=== PATIENT | female | born 1995 | race Caucasian/White ===

== ENCOUNTER → 2018-08-28 14:01 | Outpatient (CLI) | payer SELFPAY ==
[~2018-08-28 14:01] MED LIST: PREPLUS CA-FE1 EACH PO; TYLENOL W/CODEI1 TAB PO
[2018-08-28 15:25] LABS: APPEARANCE CLEAR (CLEAR); BILIRUBIN NEGATIVE (NEGATIVE); COLOR YELLOW (YELLOW); GLUCOSE 50 mg/dL (NEGATIVE); KETONE NEGATIVE (NEGATIVE); NITRITE NEGATIVE (NEGATIVE); PROTEIN NEGATIVE (NEGATIVE); SPECIFIC GRAVITY 1.025 (1.005-1.020); UROBILINOGEN NORMAL (NORMAL); WHITE CELLS - URINE NSEEN /hpf (0-5)
[2018-08-28 15:26] LABS: EPITHELIAL CELLS 0-5 /hpf (0-5); RED CELLS - URINE 0-5 /hpf (0-5)
== END | disposition home or self-care (01) ==
LOC: D.LDO 14:01
PROVIDERS: Obstetrics & Gynecology
DX: O36.8120 Decreased fetal movements, second trimester, not applicable or unspecified (principal); Z3A.21 21 weeks gestation of pregnancy

== ENCOUNTER → 2018-11-19 09:51 | Outpatient (CLI) | payer BC ==
[2018-11-19 11:17] LABS: APPEARANCE HAZY (CLEAR); BILIRUBIN NEGATIVE (NEGATIVE); COLOR YELLOW (YELLOW); GLUCOSE NEGATIVE (NEGATIVE); KETONE NEGATIVE (NEGATIVE); NITRITE NEGATIVE (NEGATIVE); PROTEIN NEGATIVE (NEGATIVE); UROBILINOGEN NORMAL (NORMAL)
[2018-11-19 11:20] LABS: RED CELLS - URINE RARE /hpf (0-5); UDS - AMPHET NEGATIVE QUAL (NEGATIVE); UDS - BARB NEGATIVE QUAL (NEGATIVE); UDS - BENZO NEGATIVE QUAL (NEGATIVE); UDS - COCAINE NEGATIVE QUAL (NEGATIVE); UDS - OPIATE NEGATIVE QUAL (NEGATIVE); UDS - PCP NEGATIVE QUAL (NEGATIVE); UDS - THC NEGATIVE QUAL (NEGATIVE)
[2018-11-19 11:21] LABS: BACTERIA MODERATE /hpf (NONE SEEN); MUCUS <1+ /lpf (NONE SEEN)
== END | disposition home or self-care (01) ==
LOC: D.LDO 09:51
PROVIDERS: ATTEND Obstetrics & Gynecology
DX: O26.899 Other specified pregnancy related conditions, unspecified trimester (principal); Z3A.00 Weeks of gestation of pregnancy not specified

== ENCOUNTER → 2018-12-02 20:33 | Outpatient (CLI) | payer BC ==
[~2018-12-02 20:33] MED LIST changes: +ACETAMINOPHEN500 M1 PO; +BENADRYL50 MG PO; +COLACE100 MG PO; +FIBER-TABS625 MG PO; +PROBIOTIC1 EAC1 PO; +TYLENOL PM1 TAB PO; +ZOFRAN ODT4 MG/UDTAB PO
== END | disposition home or self-care (01) ==
LOC: D.LDO 20:33
PROVIDERS: ATTEND Obstetrics & Gynecology
DX: O26.893 Other specified pregnancy related conditions, third trimester (principal); Z3A.00 Weeks of gestation of pregnancy not specified

== ENCOUNTER → 2018-12-20 14:36 | Outpatient (CLI) | payer BC ==
[2018-12-20 15:39] LABS: COLOR YELLOW (YELLOW)
[2018-12-20 15:43] LABS: APPEARANCE CLEAR (CLEAR); BILIRUBIN NEGATIVE (NEGATIVE); GLUCOSE NEGATIVE (NEGATIVE); KETONE NEGATIVE (NEGATIVE); NITRITE NEGATIVE (NEGATIVE); PROTEIN NEGATIVE (NEGATIVE); UROBILINOGEN NORMAL (NORMAL)
[2018-12-20 15:49] LABS: EPITHELIAL CELLS 0-5 /hpf (0-5); RED CELLS - URINE OCC /hpf (0-5); WHITE CELLS - URINE 0-5 /hpf (0-5)
[2018-12-20 15:50] LABS: BACTERIA FEW /hpf (NONE SEEN)
== END | disposition home or self-care (01) ==
LOC: D.LDO 14:36
PROVIDERS: ATTEND Obstetrics & Gynecology
DX: O26.899 Other specified pregnancy related conditions, unspecified trimester (principal); Z3A.00 Weeks of gestation of pregnancy not specified

== ENCOUNTER → 2018-12-29 10:28 | Outpatient (CLI) | payer BC ==
[~2018-12-29 10:28] MED LIST changes: +MACROBID100 MG PO; +RANITIDINE HCL150 M1 PO; +TUMS X-STR300 MG PO; +VALTREX1000 MG PO
[2018-12-29 11:22] LABS: APPEARANCE CLEAR (CLEAR); BILIRUBIN NEGATIVE (NEGATIVE); COLOR YELLOW (YELLOW); GLUCOSE NEGATIVE (NEGATIVE); KETONE NEGATIVE (NEGATIVE); NITRITE NEGATIVE (NEGATIVE); PROTEIN NEGATIVE (NEGATIVE); SPECIFIC GRAVITY 1.005 (1.005-1.020); UROBILINOGEN NORMAL (NORMAL)
[2019-01-01 22:04] VITALS: BMI 31.2
== END | disposition home or self-care (01) ==
LOC: D.LDO 10:28
PROVIDERS: ATTEND Obstetrics & Gynecology
DX: O26.899 Other specified pregnancy related conditions, unspecified trimester (principal); Z3A.00 Weeks of gestation of pregnancy not specified

== ENCOUNTER 2019-01-01 21:00 | Inpatient (IN) | payer BC ==
[~2019-01-01] VITALS: Ht 160 cm; Wt 79.8 kg
[~2019-01-01 21:00] MED LIST changes: -RANITIDINE HCL150 M1 PO; -TUMS X-STR300 MG PO
[2019-01-01] MEDS ORDERED: TUMS X-STR300 MG PO (21:31)
[2019-01-01] MEDS ORDERED: RANITIDINE HCL150 M1 PO (21:32)
[2019-01-01 22:04] VITALS: BP 110/67; Ht 160 cm; Wt 79.8 kg
[2019-01-01 23:04] LABS: HEMATOCRIT 32.2 % (36.0-48.0); HEMOGLOBIN 11.1 g/dL (12-16); MCH 31.3 pg (26.0-34.0); MCHC 34.5 g/dL (31.0-37.0); MCV 90.7 fL (80.0-100.0); MEAN PLATELET VOLUME 10.9 fL (7.4-10.4); RBC 3.55 10x6/uL (4.00-5.40); RDW 14.6 % (11.5-14.5)
--- NOTE | 2019-01-02 20:15 | NUR ---
PT AMBULATORY AND TRANSFERRED TO ROOM 1257-A, RESP EVEN AND UNLABORED, ORIENTED TO ROOM/TV, CALL LIGHT AND TV REMOTE PLACED WITHIN EASY REACH OF PT. SPOUSE AT PT BEDSIDE WITH PT, SUPPORTIVE.
--- NOTE | 2019-01-02 20:34 | NUR ---
PT GIVEN TYLENOL, TORADOL PO PER MD ORDERS FOR C/O PERINEAL DISCOMFORT, PAIN RATED 6 OF 10 ON NUMERIC PAIN SCALE, CUP OF ICE PROVIDED, PO FLUIDS ENCOURAGED, INSTRUCTIONS GIVEN FOR PERINEAL CARE. STATES UNDERSTANDING OF ALL INFORMATION DISCUSSED. FUNDUS FIRM AT U/3 AND MIDLINE, LOCHIA LIGHT AMOUNT, NO CLOTS, CONTINUE TO MONITOR.
--- NOTE | 2019-01-02 21:15 | NUR ---
ROUNDS COMPLETED, PT AMBULATORY IN ROOM, REPORTS VOID, EMPTIED 900ML FROM SPECIPAN. PT REPORTS COMPLETING PERINEAL CARE AFTER VOID PER EARLIER INSTRUCTIONS, DENIES QUESTIONS NOW. ICE PACK PROVIDED TO PT PERINEUM, FUNDUS FIRM AT U/3 AND MIDLINE. SKIN WARM AND DRY, COLOR WNL PER PT ETHNICITY. CALL LIGHT IN EASY REACH, CONTINUE TO MONITOR.
--- NOTE | 2019-01-02 22:30 | NUR ---
ROUNDS COMPLETED, PT ALERT, AMBULATORY IN ROOM. CONSUMED HS SNACK TRAY AND NOW EATING PIZZA AND DRINKING SODA. CUP OF ICE PROVIDED UPON REQUEST, RESP EVEN AND UNLABORED, NAD NOTED. FUNDUS FIRM AT U/3, MIDLINE, LOCHIA RUBRA LIGHT AMOUNT, NO CLOTS, CONTINUE TO MONITOR.
--- NOTE | 2019-01-03 00:20 | NUR ---
ROUNDS COMPLETED AFTER PT REPORTS VOIDING WITHOUT DIFFICULTY. 500ML URINE NOTED TO SPECIPAN. FUNDUS FIRM AT U/3 AND MIDLINE, LOCHIA RUBRA LIGHT AMOUNT NO CLOTS OBSERVED, PERINEAL ICE PACK IN PLACE, DENIES NEEDS OR CONCERNS, INFANT IN SIGNIFICANT OTHER'S ARMS. CALL LIGHT IN EASY REACH, NAD NOTED. CONTINUE TO MONITOR.
--- NOTE | 2019-01-03 02:45 | NUR ---
PAIN REASSESSMENT COMPLETED. PT REPORTS PAIN 5/10. ICE PACK REAPPLIED TO PERINEUM. PT STATES ICE WORKS BETTER THAN ANY PAIN MEDICATION SO FAR. CALL LIGHT IN EASY REACH. WILL MONITOR.
--- NOTE | 2019-01-03 04:51 | NUR ---
ROUNDS COMPLETED. PT RATES PAIN 4-5 ON NUMERIC PAIN SCALE, FUNDUS CHECK COMPLETED AND FIRM AT U/3 AND MIDLINE, LIGHT AMOUNT LOCHIA NOTED TO PERIPADS AND NO LOCHIA EXPRESSED WITH LIGHT FUNDAL MASSAGE/NO CLOTS. PT SIGNIFICANT OTHER WITH IN ARMS AND BONDING NOTED. DENIES NEEDS AT THIS TIME, WILL MONITOR. CALL LIGHT IN EASY REACH.
--- NOTE | 2019-01-03 07:20 | NUR ---
DR LAMAR TO ROOM. VISITS WITH PT.
[2019-01-03 07:23] LABS: RAPID PLASMA REAGIN Non Reactive (Non Reactive)
[2019-01-03 07:30] VITALS: BP 99/54
--- NOTE | 2019-01-03 07:30 | NUR ---
RECEIVED PT LYING TO LEFT SIDE IN COUCH. AWAKE. AAO X 3. VSS. HRRR WITHOUT AUDIBLE MURMUR. BBS CLEAR. BS X 4. ABDOMEN SOFT/NO-DISTENDED. FUNDUS FIRM AT U/2. RUBRA LOCHIA SMALL AMT. NO CLOTS NOTED. PT DENIES HEAVY BLEEDING OR PASSING CLOTS. PERINEUM WITH SLIGHT EDEMA NOTED. NEG HOMANS SIGN. PPP. MILD NON-PITTING EDEMA NOTED TO BLE. SL SITE CLEAR. PT C/O PAIN TO PERINEUM. PT STATES PASSED GAS YESTERDAY. NO BM YET. SR UP X 2. CALL LIGHT IN REACH. FRESH ICE PACK PROVIDED TO PT.
[2019-01-03 07:37] LABS: BASOPHILS 0.2 % (0-2); HEMOGLOBIN 10.4 g/dL (12-16); IMMATURE GRANULOCYTES 0.6 % (0-5); LYMPHOCYTES 28.5 % (15-50); MCH 31.5 pg (26.0-34.0); MCHC 34.7 g/dL (31.0-37.0); MCV 90.9 fL (80.0-100.0); MEAN PLATELET VOLUME 10.5 fL (7.4-10.4); MONOCYTES 10.5 % (2-11); NEUTROPHILS 59.2 % (40-80); PLATELET COUNT 194 10x3/uL (130-400); RDW 14.7 % (11.5-14.5); WBC 12.3 10x3/uL (4.8-10.8)
--- NOTE | 2019-01-03 07:39 | NUR ---
PT C/O ACHING, THROBBING PAIN TO PERINEUM OF "8" ON 0-10 PAIN SCALE. TORADOL 10 MG AND TYLENOL 1000 MG GIVEN PO ORDERED.
--- NOTE | 2019-01-03 08:45 | NUR ---
S: Patient states will latch on the left breast but not the right. States she feels like her left breast is sore because will only latch on that breast. States she is unsure what she is doing with . O: Patient lying in bed, FOB holding infant. Asked how are things going with ? How can I help? Informed patient takes time, practice, and patience in the beginning. Both mother and are learning how to breastfeed and this takes time because it's a learn experience. Explained the importance of practicing skin to skin to help promote infant led . Explained breastmilk composition, infant feeding cues, positions, and how to verify is latched correctly to the breast. Asked if any pain or discomfort when latching ? When practicing responsive feeding, observe infant feeding cues and feed as needed. Infant may want to nurse every 2-3 hours but then may want to nurse sooner. This is normal feeding patterns for and this will help with establishing your milk supply. Asked if any questions or concerns? Please ask nursery staff as needed for help with latching infant or any questions. was brought to nursery for doctor assessment. Patient left nipple does show signs of redness. Possible reason for nipple redness is because is only latched on the tip of the nipple for feeding. A: Patient first baby. Infant and mother are learning together how to breastfeed. P: Continue to promote during hospital visit. Kaiden Quevedo, CLC
--- NOTE | 2019-01-03 08:51 | NUR ---
PT STATES PAIN CONTINUES "8" ON 0-10 PAIN SCALE. NORCO 7.5 GIVEN PO ORDERED.
--- NOTE | 2019-01-03 09:29 | NUR ---
PT LYING SUPINE IN BED. AWAKE. STATES PAIN CONTINUES TO PERINEUM.OFFERED NEW ICE PACK. STATES HAS ONE WITH ICE IN IT.
--- NOTE | 2019-01-03 11:15 | NUR ---
PT SITTING UPRIGHT IN BED. VISITS WITH FAMILY. DENIES NEEDS OR C/O.
--- NOTE | 2019-01-03 13:08 | NUR ---
PT C/O PAIN TO PERINEUM OF "8" ON 0-10 PAIN SCALE. NORCO 7.5 MG GIVEN PO ORDERED. PT INSTRUCTED ON MED. VERBALIZES UNDERSTANDING.
[2019-01-03 14:15] VITALS: BP 126/72
--- NOTE | 2019-01-03 14:15 | NUR ---
PT SITTING UP IN BED. C/O PAIN TO PERINEUM CONTINUES. VSS. PERINEUM WITHOUT EDEMA OR REDNESS NOTED. NO HEMATOMA NOTED. PT ENCOURAGED TO LAY TILTED TO ONE SIDE OR THE OTHER TO RELIEVE PRESSURE TO PERINEUM. PT VERBALIZES UNDERSTANDING. ICE PACK TO PERINEUM PER PT REQUEST.
--- NOTE | 2019-01-03 15:46 | NUR ---
PT LYING TO RIGHT SIDE. TEMP 97.6. PT DENIES NEEDS OR C/O.
--- NOTE | 2019-01-03 17:15 | NUR ---
PT IN NURSERY LEARNING TO BATHE . VOICES NO C/O.
--- NOTE | 2019-01-03 17:30 | OP ---
PATIENT NAME: JOSÉ MIGUEL MYERS MEDICAL RECORD: [id number] :95 LOCATION:[id number] ADMISSION DATE:01/01/19 SURGEON: MEHDI PLASCENCIA MD DATE OF OPERATION: 01/02/2019 DELIVERY NOTE PREDELIVERY DIAGNOSIS: at term. POSTDELIVERY DIAGNOSIS: Mother delivered at term. PROCEDURE: Induction of labor with vaginal delivery. ATTENDING: Mehdi Plascencia MD ANESTHETIC: Continuous lumbar/epidural. FINDINGS: Viable male infant in MATHEUS presentation, Apgars were 9 and 9. Nuchal cord times 1, reduced on the perineum. Weight is 7 pounds and 8 ounces. Placenta spontaneous and intact. Midline episiotomy cut with 3-0 chromic repair. EBL: 350 cc. DISPOSITION: Mother and recovered in the room. TRANSINT:[id number] Voice Confirmation ID: [id number] DOCUMENT ID: [id number] MEHDI PLASCENCIA MD at 1730 CC: [id number] DICTATION DATE: 01/02/19 170 DRY COLOR TESTER: 01/02/192055 ADM IN [facility] [address] [place] [address]
--- NOTE | 2019-01-03 18:50 | NUR ---
PT CALLS ON LIGHT. THIS NURSE TO ROOM. PT STATES "I FEEL ANXIOUS". STATES "I FEEL LIKE I MAY HAVE A PANIC ATTACK". PT STATES HAS HX OF PANIC ATTACKS AND TAKING ATIVAN PRIOR TO . PT CALMS EASILY. STATES CONCERNS ABOUT AND PT BEING ABLE TO REST TONIGHT. PT ENCOURAGED TO REST WHILE FOB CURRENTLY IS CARING FOR INFANT AT THIS TIME. PT VERBALIZES UNDERSTANDING.
[2019-01-03 19:15] VITALS: BP 106/71
--- NOTE | 2019-01-03 19:15 | NUR ---
PATIENT SITTING UP IN BED. STATES SHE FEELS SOME BETTER AFTER TAKING A SHOWER. STATES PAIN 4 OUT OF 10. ASSESSMENT AND VITAL SIGNS DONE AT THIS TIME. RESPIRATIONS AT EASE. LUNG SOUNDS CLEAR IN ALL PRICE. HEART REGULAR RATE AND RHYTHM. ABDOMEN SOFT, NONTENDER. BOWEL SOUNDS PRESENT IN ALL 4 QUADRANTS. FUNDUS FIRM AND 2 BELOW UMBILICUS. LOCHIA RUBRA AND SCANT. NO EDEMA NOTED TO EXTREMITIES. PATIENT DENIES ANY NEEDS OR CONCERNS AT THIS TIME. BED IN LOWEST POSITION, SIDE RAILS UP X 2, C/L AND WATER WITHIN REACH.
--- NOTE | 2019-01-03 20:45 | NUR ---
PATIENT SITTING UP IN BED HOLDING INFANT. PATIENT STATES PAIN 9 OUT OF 10. PRN NORCO 7.5/325 ADMINISTERED PO AT THIS TIME. PATIENT DENIES FURTHER NEEDS. BED IN LOWEST POSITION, SIDE RAILS UP X 2, C/L AND WATER WITHIN REACH.
--- NOTE | 2019-01-03 21:30 | NUR ---
PATIENT IN BATHROOM AT THIS TIME. STATES PAIN IS BETTER, RATES HER PAIN 4 OUT OF 10. DENIES ANY NEEDS AT THIS TIME.
--- NOTE | 2019-01-03 22:12 | NUR ---
SITZ BATH PROVIDED TO PATIENT. PATIENT EDUCATED ON HOW TO USE SITZ BATH. PATIENT DEMONSTATED UNDERSTANDING. DENIES ANY FURTHER NEEDS.
--- NOTE | 2019-01-03 23:30 | NUR ---
PATIENT SITTING UP IN BED HOLDING INFANT. DENIES ANY NEEDS OR CONCERNS AT THIS TIME. DENIES PAIN. BED IN LOWEST POSITION, SIDE RAILS UP X 2, C/L AND WATER WITHIN REACH.
[2019-01-04 00:40] VITALS: BP 110/62
--- NOTE | 2019-01-04 00:40 | NUR ---
PATIENT SITTING UP IN BED HOLDING INFANT. STATES PAIN 3 OUT OF 10. DENIES NEED FOR PAIN MEDICATION. DENIES ANY NEEDS OR CONCERNS. BED IN LOWEST POSITION, SIDE RAILS UP X 2, C/L AND WATER WITHIN REACH.
--- NOTE | 2019-01-04 02:50 | NUR ---
PATIENT SITTING UP IN BED INFANT. STATES PAIN 8 OUT OF 10. PRN NORCO 7.5/325 ADMINISTERED PO. PATIENT DENIES FURTHER NEEDS. BED IN LOWEST POSITION, SIDE RAILS UP X2, C/L AND WATER WITHIN REACH.
--- NOTE | 2019-01-04 04:23 | NUR ---
PATIENT SITTING UP IN BED HOLDING INFANT. PATIENT STATES PAIN 2 OUT OF 10. DENIES ANY NEEDS OR CONCERNS. VITAL SIGNS DONE AT THIS TIME. BED IN LOWEST POSITION, SIDE RAILS UP X 2, C/L AND WATER WITHIN REACH.
[2019-01-04 04:24] VITALS: BP 103/63
--- NOTE | 2019-01-04 05:45 | NUR ---
THIS RN CALLED TO ROOM. PATIENT C/O OF A TINGLY/NUMB SENSATION IN BLE FROM HER KNEES DOWN. NO WARMTH OR REDNESS NOTED TO BLE. PATIENT ENCOURAGED TO WALK IN PLACE AND AMBULATE AROUND ROOM WITH THIS RN AT SIDE. PATIENT AMBULATED WITHOUT DIFFICULTY. STATES THE TINGLY/NUMB SENSATION IN BLE WAS IMPROVING. WILL CONTINUE TO MONITOR. BED IN LOWEST POSITION, SIDE RAILS UP X 2, C/L AND WATER WITHIN REACH.
--- NOTE | 2019-01-04 07:45 | NUR ---
PT LYING TO RIGHT SIDE ON COUCH. EYES CLOSED. RESP NON-LABORED. SO IN ROOM CARING FOR . WILL NOTIFY NURSE WHEN PT WAKES FOR ASSESSMENT TO BE COMPLETED.
--- NOTE | 2019-01-04 09:09 | NUR ---
PT SITTING UP IN CHAIR. INFANT. C/O PAIN TO PERINEUM OF "10" ON 0-10 PAIN SCALE. NORCO 7.5 GIVEN PO ORDERED. PT TO NOTIFY NURSE WHEN FINISHED FOR ASSESSMENT.
[2019-01-04 09:40] VITALS: BP 111/70
--- NOTE | 2019-01-04 09:40 | NUR ---
PT BACK TO BED. VSS. HRRR WITHOUT AUDIBLE MURMUR. BBS CLEAR. BS X 4. ABDOMEN SOFT/NON-DISTENDED. FUNDUS FIRM AT U/2. RUBRA LOCHIA SMALL AMT. NO CLOTS NOTED. PERINEUM WITHOUT EDEMA. NEG HOMANS' SIGN. PPP. NO EDEMA NOTED TO BLE. PT DENIES NEEDS OR C/O.
[2019-01-04] MEDS ORDERED: VISTARIL50 MG PO (10:48)
[2019-01-04] MEDS ORDERED: TYLENOL W/CODEI1 TAB PO (10:48)
--- NOTE | 2019-01-04 11:13 | NUR ---
PT SITTING UP IN CHAIR . ASKING IF RN MILITARY COMING IN TODAY. TATA NAM IN NURSERY NOTIFIED OF PT QUESTION AND TO SPEAK WITH PT.
--- NOTE | 2019-01-04 11:15 | NUR ---
RX FOR TYLENOL #3 AND [facility] CALLED IN TO [facility] ON [address].
--- NOTE | 2019-01-04 12:49 | NUR ---
PT AMBULATORY IN ROOM. C/O PAIN TO PERINEUM OF "10" ON 0-10 PAIN SCALE. NORCO 7.5 GIVEN PO ORDERED.
--- NOTE | 2019-01-04 13:20 | NUR ---
DR. LAMAR IN ROOM, SPEAKING WITH PT.
--- NOTE | 2019-01-04 14:05 | NUR ---
PT AMBULATORY IN ROOM. VISITS WITH FAMILY. DENIES NEEDS OR C/O.
--- NOTE | 2019-01-04 15:00 | NUR ---
DISCHARGE INSTRUCTIONS GIVEN TO PT. PT VERBALIZES UNDERSTANDING OF ALL INSTRUCTIONS. COPIES GIVEN TO PT. PT PREPARES FOR DISCHARGE.
--- NOTE | 2019-01-04 15:40 | NUR ---
PT READY FOR DISCHARGE. DISCHARGED IN STABLE CONDITION WITH SECURED IN CARSEAT VIA WHEELCHAIR PER Chuck BLISS RN TO PRIVATE VEHICLE.
== END 2019-01-04 15:40 | disposition home or self-care (01) | DRG 807 ==
LOC: D.LD 21:00
PROVIDERS: ADMIT Obstetrics & Gynecology; ATTEND Obstetrics & Gynecology
PROC: 10E0XZZ Delivery of Products of Conception, External Approach (ICD-10-PCS; principal; 2019-01-02)
PROC: 3E033VJ Introduction of Other Hormone into Peripheral Vein, Percutaneous Approach (ICD-10-PCS; 2019-01-02)
DX: O69.81X0 Labor and delivery complicated by cord around neck, without compression, not applicable or unspecified (principal); Z37.1 Single stillbirth; Z3A.40 40 weeks gestation of pregnancy

== ENCOUNTER → 2019-07-31 13:37 | Outpatient (CLI) | payer BC ==
[2019-01-01 22:04] VITALS: BMI 31.2
[~2019-07-31 13:37] MED LIST changes: +RANITIDINE HCL150 M1 PO; +TUMS X-STR300 MG PO; +VISTARIL50 MG PO
== END | disposition home or self-care (01) ==
LOC: D.US 11:00
PROVIDERS: ATTEND Orthopaedic Surgery
DX: M67.431 Ganglion, right wrist (principal)

== ENCOUNTER 2019-08-07 05:09 | Day surgery (SDC) | payer BC ==
[~2019-08-07] VITALS: Ht 160 cm; Wt 63.5 kg
[~2019-08-07 05:09] MED LIST changes: +ERRIN0.35 MG PO
[2019-08-07 05:26] LABS: HEMOGLOBIN 14.1 g/dL (12-16); MCH 30.9 pg (26.0-34.0); MCHC 34.4 g/dL (31.0-37.0); MCV 89.9 fL (80.0-100.0); MEAN PLATELET VOLUME 9.3 fL (7.4-10.4); RBC 4.56 10x6/uL (4.00-5.40); RDW 12.8 % (11.5-14.5); WBC 7.3 10x3/uL (4.8-10.8)
[2019-08-07 06:04] VITALS: BP 103/67; Ht 160 cm; Wt 63.5 kg
[2019-08-07 06:27] LABS: HCG URINE NEGATIVE (NEGATIVE)
[2019-08-07] MEDS ORDERED: HYDROCODON-ACE1 EAC7 PO (07:51)
--- NOTE | 2019-08-07 09:04 | NUR ---
0853 PT STATES ELEVATING HAND AND ICE APPLIED DID NOT HELP REDUCE PAIN. NORCO GIVEN ORDERED
--- NOTE | 2019-08-07 09:25 | NUR ---
0921 IV DC'D. CATHETER TIP INTACT. NO BLEEDING AT SITE. BANDAID APPLIED.
--- NOTE | 2019-08-07 12:25 | OP ---
PATIENT NAME: JOSÉ MIGUEL ENGLISH MEDICAL RECORD: [id number] :95 LOCATION:[facility] ADMISSION DATE: SURGEON: BROCK REGALADO DO DATE OF OPERATION: 08/07/2019 PROCEDURE PERFORMED: Excision of ganglion on the right volar wrist. PREOPERATIVE DIAGNOSIS: Right volar wrist ganglion. POSTOPERATIVE DIAGNOSIS: Right volar wrist ganglion. INDICATIONS: Ms. English is a 23-year-old female who has had right wrist dorsal ganglion for quite some time, it is causing her quite a lot of pain. She was tired of dealing with the pain and affecting her activities of daily living as she is a new mom and having to lift her baby was giving her a lot of pain and she was aware of the high recurrence rate of these. I informed her of that and told her that I will do my best to get all out and get the stalk off the wrist capsule and that should prevent her of coming back, but there is a high likelihood that it would return. She was aware that and aware of the risks including infection, bleeding, damage to nerves and vessels especially the radial artery being right there. Ultrasound was done to make sure there was not an aneurysm of the artery and was not, but it did read right underneath the radial artery. The patient was aware of that and I informed of the risks of damage of that artery and she signed consent. SURGEON: Brock Regalado DO DESCRIPTION OF PROCEDURE: The patient was taken to the operative suite, given TIVA. The right upper extremity was then prepped and draped in sterile fashion. A timeout was performed and everybody was in agreement as to the correct site, site, patient, and procedure. The right upper extremity was then exsanguinated with an Esmarch, tourniquet was inflated to 250 mmHg and was up for 19 minutes. Incision was made over the ganglion cyst little ulnar to avoid the radial artery. A blunt dissection was made down to the cyst and the artery was dissected out as well. It was retracted with a short and the Ragnell. The ganglion cyst was ruptured and the cyst material was taken out and dissection was made down to the stalk of it to the wrist capsule and this was removed and a pickup and Bovie was used to coagulate the stalk and where it came off of the volar wrist capsule. This was all removed and I ensured there was no more stalk off the capsule and the tourniquet was let down. When tourniquet was let down, pressure was held and the site was injected with 0.25% Marcaine with epinephrine, approximately 6 mL in the site and pressure was held. There was very little bleeding. The site was then closed with 5-0 Monocryl in inverted interrupted fashion and Steri-Strips placed over that. Adaptic, 4 x 4's, Kerlix, and a Coban was lightly wrapped on the wrist. She was then awakened and taken back to her room due to the fact that she was on TIVA in stable condition. BLOOD LOSS: Minimal. COMPLICATIONS: None. TRANSINT:[id number] Voice Confirmation ID: [id number] DOCUMENT ID: [id number] OPERATIVE REPORT [id number] JOSÉ MIGUEL ENGLISH,BROCK Magana DO at 1225 CC: [id number] DICTATION DATE: 08/07/19 0757 PROTOTYPE DEICER ASSEMBLER: 08/07/19 1033 [facility] 08/07/19 [id number] [place] [address]
== END 2019-08-07 09:27 | disposition home or self-care (01) ==
LOC: D.OPS 05:09 → D.PAN 07:00 → D.OPS 09:27
PROVIDERS: Anesthesiology; ATTEND Orthopaedic Surgery
DX: M67.431 Ganglion, right wrist (principal)